=== PATIENT | female | born 1975 | race Caucasian/White ===

== ENCOUNTER → 2018-10-04 | Outpatient (CLI) | payer OTHER ==
--- NOTE | 2018-10-05 02:28 | MR ---
EXAMINATION TYPE: MR shoulder LT wo con DATE OF EXAM: 10/04/2018 COMPARISON: None HISTORY: Patient presents with left shoulder pain for 1 year with Limited motion. TECHNIQUE: Multiplanar, multisequence imaging of the left shoulder is performed without contrast. FINDINGS: The supraspinatus tendon is intact. The subscapularis tendon is intact. Biceps tendon is intact. Ther e is minimal shoulder joint effusion. There is no fracture nor dislocation. The glenoid taty appear intact. I see no bony destructive process. IMPRESSION: No evidence of rotator cuff tear. Minimal joint effusion consistent with mild synovitis.
== END | disposition home or self-care (01) ==
LOC: RADMRIMAIN 18:15
PROVIDERS: ATTEND Internal Medicine
DX: M25.412 Effusion, left shoulder (principal)

== ENCOUNTER → 2019-09-12 | Outpatient (CLI) | payer OTHER ==
--- NOTE | 2019-09-21 14:33 | MM ---
Reason for exam: screening (asymptomatic). Last mammogram was performed 7 years and 7 months ago. History: Patient is nulliparous. Family history of breast cancer in paternal grandmother. Physical Findings: A clinical breast exam by your physician is recommended on an annual basis and results should be correlated with mammographic findings. MG Screening Mammo w CAD Bilateral CC and MLO view(s) were taken. Prior study comparison: February 16, 2012, mammogram, performed at [facility]. February 08, 2012, mammogram, performed at [facility]. The breast tissue is extremely dense which could obscure a lesion on mammography. There is no discrete abnormality. No significant changes when compared with prior studies. ASSESSMENT: Negative, BI-RAD 1 RECOMMENDATION: Routine screening mammogram of both breasts in 1 year.
== END | disposition home or self-care (01) ==
LOC: RADMAMWWP 16:09
PROVIDERS: ATTEND Obstetrics & Gynecology
DX: Z12.31 Encounter for screening mammogram for malignant neoplasm of breast (principal)
CPT/HCPCS: 77067

== ENCOUNTER → 2021-05-05 | Outpatient (CLI) | payer OTHER ==
--- NOTE | 2021-05-06 13:35 | MM ---
Reason for exam: screening (asymptomatic). Last mammogram was performed 1 year and 8 months ago. History: Patient is nulliparous. Family history of breast cancer in paternal grandmother. Physical Findings: A clinical breast exam by your physician is recommended on an annual basis and results should be correlated with mammographic findings. MG Screening Mammo w CAD Bilateral CC and MLO view(s) were taken. Prior study comparison: September 12, 2019, bilateral MG screening mammo w CAD. February 16, 2012, mammogram, performed at [facility]. The breast tissue is heterogeneously dense. This may lower the sensitivity of mammography. Asymmetric breast tissue left breast 6cm from nipple middle CC view, right medial breast 4-5cm from nipple and left posterior breast. ASSESSMENT: Incomplete: need additional imaging evaluation, BI-RAD 0 RECOMMENDATION: Special view mammogram of both breasts. If lesion persists on supplemental views, image directed ultrasound is recommended. [facility] will attempt to contact patient to return for supplemental views and ultrasound if indicated.
== END | disposition home or self-care (01) ==
LOC: RADMAMWWP 08:12
PROVIDERS: ATTEND Obstetrics & Gynecology
DX: Z12.31 Encounter for screening mammogram for malignant neoplasm of breast (principal)
CPT/HCPCS: 77067

== ENCOUNTER → 2021-05-07 | Outpatient (CLI) | payer OTHER ==
--- NOTE | 2021-05-07 09:48 | MM ---
Reason for exam: additional evaluation requested from abnormal screening. Last mammogram was performed less than 1 month ago. History: Patient history of other cancer and is nulliparous. Family history of breast cancer in paternal grandmother. Physical Findings: A clinical breast exam by your physician is recommended on an annual basis and results should be correlated with mammographic findings. MG Work Up Mamm w CAD BILAT Bilateral spot compression CC, spot compression MLO, and ML view(s) were taken. XCCL view(s) were taken of the left breast. Prior study comparison: May 05, 2021, bilateral MG screening mammo w CAD. September 12, 2019, bilateral MG screening mammo w CAD. The breast tissue is extremely dense which could obscure a lesion on mammography. Persistent nodular density 9.5mm behind the nipple zone B/C 5.7cm from nipple. Right breast negative. These results were verbally communicated with the patient and result sheet given to the patient on 05/07/21. ASSESSMENT: Incomplete: need additional imaging evaluation, BI-RAD 0 Incomplete: need additional imaging evaluation, BI-RAD 0 of the left breast. Benign, BI-RAD 2 finding in the right breast. RECOMMENDATION: Ultrasound of the left breast.
--- NOTE | 2021-05-07 09:50 | USB ---
Reason for exam: additional evaluation requested from abnormal screening. History: Patient history of other cancer and is nulliparous. Family history of breast cancer in paternal grandmother. Physical Findings: A clinical breast exam by your physician is recommended on an annual basis and results should be correlated with mammographic findings. US Breast Workup Limited LT Left limited breast ultrasound including focal area of concern, retroareolar and axilla demonstrates a 0.9 x 0.8 x 0.6cm cystic lesion at 1 o'clock, 5cm from nipple. Scanned 12-1 o'clock. These results were verbally communicated with the patient and result sheet given to the patient on 05/07/21. ASSESSMENT: Benign, BI-RAD 2 RECOMMENDATION: Return to routine screening mammogram schedule for both breasts.
== END | disposition home or self-care (01) ==
LOC: RADMAMWWP 07:43
PROVIDERS: ATTEND Obstetrics & Gynecology
DX: R92.8 Other abnormal and inconclusive findings on diagnostic imaging of breast (principal)
CPT/HCPCS: 77066